=== PATIENT | female | born 1960 | race Caucasian/White ===

== ENCOUNTER → 2016-09-11 | Outpatient (CLI) | payer BC ==
--- NOTE | 2016-09-11 12:56 | XR ---
EXAMINATION TYPE: XR Hip Complete RT DATE OF EXAM: 09/11/2016 12:49 PM COMPARISON: NONE HISTORY: Right hip pain TECHNIQUE: 2 views submitted FINDINGS: There is no evidence of erosive change or acute fracture. Hypertrophic changes noted with mild narrowing of the joint space. Calcific density along the acetabu lum likely related to chronic labral tear. IMPRESSION: 1. No evidence of acute fracture or dislocation. 2. Arthropathy of the right hip.
--- NOTE | 2016-09-11 12:56 | XR ---
EXAMINATION TYPE: XR abdomen 1V DATE OF EXAM: 09/11/2016 12:49 PM COMPARISON: 12/28/2013 HISTORY: Pain TECHNIQUE: One view abdominal series FINDINGS: The osseous structures are intact. The bowel gas pattern is nonspecific. IMPRESSION: 1. Nonspecific abdomen.
--- NOTE | 2016-09-11 12:58 | XR ---
EXAMINATION TYPE: XR knee complete LT DATE OF EXAM: 09/11/2016 12:49 PM COMPARISON: NONE HISTORY: Pain TECHNIQUE: Four views are submitted. FINDINGS: Mild narrowing of the medial compartment of the knee joint. 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 Noted posteriorly on the lateral view. Osseous structures are intact. No acute fracture seen. IMPRESSION: 1. No acute fracture or dislocation.
--- NOTE | 2016-09-11 13:12 | XR ---
EXAMINATION TYPE: XR pelvis AP view DATE OF EXAM: 09/11/2016 12:49 PM COMPARISON: NONE HISTORY: Pain The osseous structures are intact and the joint spaces are preserved. No acute fracture is seen. Vi sualized bowel gas pattern is nonspecific. Calcifications in the pelvis are likely vascular. Arthrop athy of the hips noted. Degenerative change of the lower lumbar spine. IMPRESSION: 1. Arthropathy hip joints bilaterally. 2. Degenerative disc disease lower lumbar spine.
== END | disposition home or self-care (01) ==
LOC: RADXRMAIN 12:16
PROVIDERS: ATTEND Family Medicine
DX: M12.851 Other specific arthropathies, not elsewhere classified, right hip (principal); M25.562 Pain in left knee; R10.2 Pelvic and perineal pain; R10.9 Unspecified abdominal pain
CPT/HCPCS: 72170; 73502; 74000

== ENCOUNTER 2016-10-31 12:36 | Observation (INO) | payer BC ==
[2016-10-31] MEDS ORDERED: ASPIRIN 81 MG CHEW PO STA (13:47)
[2016-10-31 14:13] LABS: Partial Thromboplastin Time 26.5 sec (22.0-30.0); Prothrombin Time 10.1 sec (9.0-12.0)
--- NOTE | 2016-10-31 14:16 | ED ---
General Adult HPI - General Chief complaint: Recheck/Abnormal Lab/Rx Stated complaint: heart concerns/dizziness Time Seen by Provider: 10/31/16 13:01 Source: patient, RN notes reviewed, old records reviewed Mode of arrival: ambulatory Limitations: no limitations - History of Present Illness Initial comments: This is a 56-year-old female to the ER for evaluation. Patient states coming in for concerns of heart rate. Irregular heart rate palpitations not feeling well.Since Friday patient has been weak and dizzy, not feeling well. Mostly in the am patient has been feeling off, today had episode of dizziness and weakness , shortness of breath. States heart isnt acting appropriately, patient has no fever or chest pain, currently with dietary changes and weight loss. - Related Data Home Medications Medication Instructions Recorded Confirmed Atenolol [Tenormin] 50 mg PO HS 12/28/13 10/31/16 Cetirizine HCl [Zyrtec] 10 mg PO HS 12/28/13 10/31/16 Levothyroxine Sodium [Synthroid] 66 mcg PO DAILY 12/28/13 10/31/16 Lisinopril-Hctz 20-12.5 mg 1 tab PO DAILY 12/28/13 10/31/16 [Zestoretic 20-12.5] Carotene 1 tab PO DAILY 10/31/16 10/31/16 Ergocalciferol [Vitamin D2] 50,000 unit PO TU 10/31/16 10/31/16 Ferrous Sulfate [Feosol] 325 mg PO DAILY 10/31/16 10/31/16 Magnesium 200 mg PO DAILY 10/31/16 10/31/16 Naltrexone HCl/Bupropion HCl 1 tab PO DAILY 10/31/16 10/31/16 [Contrave ER 8-90 mg Tablet] Potassium 99 mg PO DAILY 10/31/16 10/31/16 Vitamin C/Biotin [Hair, Skin and 1 tab PO DAILY 10/31/16 10/31/16 Nails] Allergies Allergy/AdvReac Type Severity Reaction Status Date / Time penicillin V Allergy Rash/Hives Verified 10/31/16 13:59 hydromorphone AdvReac Vomiting Verified 10/31/16 13:59 Review of Systems ROS Statement: Those systems with pertinent positive or pertinent negative responses have been documented in the HPI. ROS Other: All systems not noted in ROS Statement are negative. Past Medical History Past Medical History: Hyperlipidemia, Hypertension, Thyroid Disorder History of Any Multi-Drug Resistant Organisms: None Reported Past Surgical History: Section Past Psychological History: No Psychological Hx Reported Smoking Status: Never smoker Past Alcohol Use History: Occasional Past Drug Use History: None Reported General Exam Limitations: no limitations General appearance: alert, in no apparent distress Head exam: Present: atraumatic, normocephalic, normal inspection Eye exam: Present: normal appearance, PERRL, EOMI. Absent: scleral icterus, conjunctival injection, periorbital swelling ENT exam: Present: normal exam, mucous membranes moist Neck exam: Present: normal inspection. Absent: tenderness, meningismus, lymphadenopathy Respiratory exam: Present: normal lung sounds bilaterally. Absent: respiratory distress, wheezes, rales, rhonchi, stridor Cardiovascular Exam: Present: regular rate, normal rhythm, normal heart sounds. Absent: systolic murmur, diastolic murmur, rubs, gallop, clicks GI/Abdominal exam: Present: soft, normal bowel sounds. Absent: distended, tenderness, guarding, rebound, rigid Extremities exam: Present: normal inspection, full ROM, normal capillary refill. Absent: tenderness, pedal edema, joint swelling, calf tenderness Back exam: Present: normal inspection Neurological exam: Present: alert, oriented X3, CN II-XII intact Psychiatric exam: Present: normal affect, normal mood Skin exam: Present: warm, dry, intact, normal color. Absent: rash Course Vital Signs 10/31/16 10/31/16 10/31/16 12:37 13:34 14:40 Temperature 98.1 F Pulse Rate 82 75 Pulse Rate [ 76 Engineer ] Respiratory 20 16 16 Rate Blood Pressure 136/65 115/78 O2 Sat by Pulse 95 96 Oximetry EKG Findings - EKG Comments: EKG Findings:: EKG shows normal sinus rhythm a rate, OR 162, QRS 80, QTC 445 Medical Decision Making - Medical Decision Making 56 female to ed with palpiations, weakness, near syncope and chest pain, patient with history of HTN and high cholesterol, will be admitted for trending of troponin and cardiac evaluation - Lab Data Result diagrams: 10/31/16 13:25 10/31/16 13:25 Lab Results 10/31/16 10/31/16 10/31/16 Range/Units 13:25 13:25 13:25 WBC (3.8-10.6) k/uL RBC (3.80-5.40) m/uL Hgb (11.4-16.0) gm/dL Hct (34.0-46.0) % MCV (80.0-100.0) fL MCH (25.0-35.0) pg MCHC (31.0-37.0) g/dL RDW (11.5-15.5) % Plt Count (150-450) k/uL Neutrophils % % Lymphocytes % % Monocytes % % Eosinophils % % Basophils % % Neutrophils # (1.3-7.7) k/uL Lymphocytes # (1.0-4.8) k/uL Monocytes # (0-1.0) k/uL Eosinophils # (0-0.7) k/uL Basophils # (0-0.2) k/uL PT 10.1 (9.0-12.0) sec INR 1.0 (<1.1) APTT 26.5 (22.0-30.0) sec Sodium 140 (137-145) mmol/L Potassium 3.8 (3.5-5.1) mmol/L Chloride 105 (98-107) mmol/L Carbon Dioxide 24 (22-30) mmol/L Anion Gap 11 mmol/L BUN 15 (7-17) mg/dL Creatinine 0.80 (0.52-1.04) mg/dL Est GFR (MDRD) Af Amer >60 (>60 ml/min/1.73 sqM) Est GFR (MDRD) Non-Af >60 (>60 ml/min/1.73 sqM) Glucose 121 H (74-99) mg/dL Calcium 9.7 (8.4-10.2) mg/dL Total Bilirubin 0.8 (0.2-1.3) mg/dL AST 40 H (14-36) U/L ALT 56 H (9-52) U/L Alkaline Phosphatase 84 (38-126) U/L Total Creatine Kinase 146 H (30-135) U/L CK-MB (CK-2) 1.9 (0.0-2.4) ng/mL CK-MB (CK-2) Rel Index 1.3 Troponin I <0.012 (0.000-0.034) ng/mL Total Protein 7.8 (6.3-8.2) g/dL Albumin 4.4 (3.5-5.0) g/dL 10/31/16 Range/Units 13:25 WBC 6.7 (3.8-10.6) k/uL RBC 4.03 (3.80-5.40) m/uL Hgb 13.7 (11.4-16.0) gm/dL Hct 37.9 (34.0-46.0) % MCV 93.9 (80.0-100.0) fL MCH 33.9 (25.0-35.0) pg MCHC 36.1 (31.0-37.0) g/dL RDW 13.0 (11.5-15.5) % Plt Count 212 (150-450) k/uL Neutrophils % 50 % Lymphocytes % 34 % Monocytes % 9 % Eosinophils % 1 % Basophils % 1 % Neutrophils # 3.4 (1.3-7.7) k/uL Lymphocytes # 2.3 (1.0-4.8) k/uL Monocytes # 0.6 (0-1.0) k/uL Eosinophils # 0.1 (0-0.7) k/uL Basophils # 0.1 (0-0.2) k/uL PT (9.0-12.0) sec INR (<1.1) APTT (22.0-30.0) sec Sodium (137-145) mmol/L Potassium (3.5-5.1) mmol/L Chloride (98-107) mmol/L Carbon Dioxide (22-30) mmol/L Anion Gap mmol/L BUN (7-17) mg/dL Creatinine (0.52-1.04) mg/dL Est GFR (MDRD) Af Amer (>60 ml/min/1.73 sqM) Est GFR (MDRD) Non-Af (>60 ml/min/1.73 sqM) Glucose (74-99) mg/dL Calcium (8.4-10.2) mg/dL Total Bilirubin (0.2-1.3) mg/dL AST (14-36) U/L ALT (9-52) U/L Alkaline Phosphatase (38-126) U/L Total Creatine Kinase (30-135) U/L CK-MB (CK-2) (0.0-2.4) ng/mL CK-MB (CK-2) Rel Index Troponin I (0.000-0.034) ng/mL Total Protein (6.3-8.2) g/dL Albumin (3.5-5.0) g/dL - Radiology Data Radiology results: report reviewed (CXR is negative for acute disease), image reviewed Critical Care Time Critical Care Time: Yes Total Critical Care Time: 31 Disposition Clinical Impression: Chest pain, Palpitations, Dizziness Disposition: ADMITTED IP TO THIS [facility] Condition: Undetermined Referrals: Henry Goode DO [Primary Care Provider] - 1-2 days
[2016-10-31 14:18] LABS: ALT 56 U/L (9-52); AST 40 U/L (14-36); Alkaline Phosphatase 84 U/L (38-126); Anion Gap 11 mmol/L; Blood Urea Nitrogen 15 mg/dL (7-17); Calcium 9.7 mg/dL (8.4-10.2); Carbon Dioxide 24 mmol/L (22-30); Chloride 105 mmol/L (98-107); Glucose 121 mg/dL (74-99); Non-African American GFR(MDRD) >60 (>60 ml/min/1.73 sqM); Potassium 3.8 mmol/L (3.5-5.1); Sodium 140 mmol/L (137-145); Total Bilirubin 0.8 mg/dL (0.2-1.3); Total Protein 7.8 g/dL (6.3-8.2)
[2016-10-31 14:24] LABS: Creatine Kinase 146 U/L (30-135)
[2016-10-31 14:37] LABS: Creatine Kinase MB 1.9 ng/mL (0.0-2.4); Troponin I <0.012 ng/mL (0.000-0.034)
[2016-10-31 15:12] LABS: Basophils # (A) 0.1 k/uL (0-0.2); Basophils % (A) 1 %; CH 33.7; Eosinophils # (A) 0.1 k/uL (0-0.7); Eosinophils % (A) 1 %; HCT 37.9 % (34.0-46.0); HDW 2.79; HGB 13.7 gm/dL (11.4-16.0); Luc # (Auto) 0.26; Luc % (Auto) 4; Lymphocytes # (A) 2.3 k/uL (1.0-4.8); Lymphocytes % (A) 34 %; MCH 33.9 pg (25.0-35.0); MCHC 36.1 g/dL (31.0-37.0); MCV 93.9 fL (80.0-100.0); Monocytes # (A) 0.6 k/uL (0-1.0); Monocytes % (A) 9 %; Neutrophils # (A) 3.4 k/uL (1.3-7.7); Neutrophils % (A) 50 %; RBC 4.03 m/uL (3.80-5.40); WBC 6.7 k/uL (3.8-10.6); WBC (Perox) 6.55
[2016-10-31] MEDS ORDERED: NITROGLYCERIN SL TABS 0.4 MG TAB SUBLINGUAL PRN (15:38)
[2016-10-31] MEDS ORDERED: HEPARIN SODIUM,PORCINE 5,000 UNIT/ML 1 ML VIAL IV ONE (15:38)
[2016-10-31] MEDS ORDERED: HEPARIN SODIUM,PORCINE 5,000 UNIT/ML 1 ML VIAL IV PRN (15:38)
[2016-10-31] MEDS ORDERED: HEPARIN SODIUM,PORCINE/D5W PMX 25,000 UNIT in DEXTROSE/WATER 1 500ML.BAG IV SCH (15:45)
[2016-10-31 15:48] LABS: Magnesium 2.2 mg/dL (1.6-2.3); Phosphorous 3.1 mg/dL (2.5-4.5)
[2016-10-31] MEDS: SODIUM CHLORIDE 0.9% 1,000 ML IV SCH (15:54)
--- NOTE | 2016-10-31 16:19 | XR ---
EXAMINATION TYPE: XR chest 2V DATE OF EXAM: 10/31/2016 4:14 PM COMPARISON: NONE HISTORY: Chest pain. TECHNIQUE: Frontal and lateral views of the chest are obtained. FINDINGS: There is no focal air space opacity, pleural effusion, or pneumothorax seen. The cardiac silhouette size is upper limits of normal. The osseous structures are intact. IMPRESSION: No acute process.
[2016-10-31 20:15] LABS: Creatine Kinase 113 U/L (30-135)
[2016-10-31 20:27] LABS: Creatine Kinase MB 1.3 ng/mL (0.0-2.4); Troponin I <0.012 ng/mL (0.000-0.034)
[2016-10-31] MEDS ORDERED: ATENOLOL 50 MG TAB PO SCH (21:00)
[2016-10-31] MEDS ORDERED: LORATADINE 10 MG TAB PO SCH (21:00)
--- NOTE | 2016-10-31 21:06 | CONS ---
Mckenzie Phillips is a 56-year-old female who presented to the hospital but it is increasing fluttering in her neck. However, she also stated that she had a tightness in the chest that lasted for a few hours and therefore, she is being ruled out for an UT. She is on IV heparin. Her first cardiac enzyme is normal. There are no ST segment abnormalities on her first 12-lead ECG. I do not see any arrhythmias so far. She denies any dizziness, lightheadedness, loss of consciousness. The fluttering that she described seemed like premature beats. She has never experienced any sustained palpitations or loss of consciousness. 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 She is on atenolol and lisinopril/hydrochlorothiazide. She has been hypertensive since the age of 30 years. REVIEW OF SYSTEMS: No fever, chills or rigors. No cough or expectoration. No nausea, vomiting or diarrhea. No hematuria or dysuria. No strokes or seizure. No skin lesions or musculoskeletal complaints. ALLERGIES TO PENICILLIN, HYDROMORPHONE. Medication list includes: 1. Levothyroxine. 2. Atenolol 50 mg daily. 3. Zyrtec. 4. Lisinopril/hydrochlorothiazide 20/12.5 mg daily. 5. Ferrous sulfate. SOCIAL HISTORY: She is a never smoker. She has been on weight loss medications. On examination, her blood pressure is 115/78 mmHg, her heart rate is in the 60s. Head and neck examination is normal. Heart sounds are normal Head and neck are normal. Heart sounds S1, S2 are normal. No murmurs or gallop. ABDOMEN: Soft, nontender. No abdominal bruits audible. EXTREMITIES: Warm. No edema. IMPRESSION: 1. Fluttering in the neck, which is increasing in frequency. 2. Hypertension on atenolol and lisinopril/hydrochlorothiazide. 3. Dyslipidemia intolerant to multiple statins and acute renal failure with TriCor. 4. Intermittently for the last several months has been taking weight loss medications, but her palpitations began way before that. SUGGEST: 1. TSH level, lipid panel. 2. Monitor on telemetry and watch for the arrhythmias. 3. Serial cardiac enzymes to rule out any myocardial injury on account of the chest discomfort that she has experienced and a 2-D echo and Doppler study to assess cardiac structure and function. I would like to see the degree of left ventricular hypertrophy, particularly since she has been hypertensive since the age of 30.
[2016-11-01 03:06] LABS: Creatine Kinase 105 U/L (30-135)
[2016-11-01 03:18] LABS: Creatine Kinase MB 1.4 ng/mL (0.0-2.4); Troponin I <0.012 ng/mL (0.000-0.034)
[2016-11-01] MEDS: SODIUM CHLORIDE 0.9% 1,000 ML IV SCH (06:28)
[2016-11-01] MEDS ORDERED: LEVOTHYROXINE 112 MCG TAB PO SCH (06:30)
[2016-11-01 07:15] LABS: Mean Platelet Volume 7.7
[2016-11-01] MEDS ORDERED: NALTREXONE HCL PO SCH (09:00)
[2016-11-01] MEDS ORDERED: LISINOPRIL-HCTZ 20-12.5 MG 1 EACH TAB PO SCH (09:00)
[2016-11-01] MEDS ORDERED: POTASSIUM CHLORIDE ORAL LIQUID 40 MEQ/30 ML CUP PO SCH (09:00)
[2016-11-01] MEDS ORDERED: ASPIRIN 325 MG TAB PO SCH (09:00)
[2016-11-01] MEDS ORDERED: MAGNESIUM OXIDE 400 MG TAB PO SCH (09:00)
[2016-11-01] MEDS ORDERED: BUPROPION HCL PO SCH (09:00)
[2016-11-01] MEDS ORDERED: [UNRECOGNIZED DRUG - OTHER] PO SCH (09:00)
--- NOTE | 2016-11-01 09:57 | ECHOF ---
Referral Reason:palp/cp MEASUREMENTS -------- HEIGHT: 162.6 cm WEIGHT: 95.3 kg BP: 104/67 RVIDd: 3.2 cm (< 3.3) IVSd: 1.0 cm (0.6 - 1.1) LVIDd: 4.5 cm (3.9 - 5.3) LVPWd: 1.0 cm (0.6 - 1.1) IVSs: 1.4 cm LVIDs: 3.3 cm LVPWs: 1.4 cm LAESV Index (A-L): 10.48 ml/m Ao Diam: 2.6 cm (2.0 - 3.7) AV Cusp: 1.7 cm (1.5 - 2.6) LA Diam: 3.3 cm (2.7 - 3.8) MV EXCURSION: 15.965 mm (> 18.000) MV EF SLOPE: 99 mm/s (70 - 150) EPSS: 0.4 cm MV E Lalo: 0.85 m/s MV DecT: 232 ms MV A Lalo: 0.52 m/s MV E/A Ratio: 1.64 RAP: 5.00 mmHg RVSP: 29.36 mmHg FINDINGS -------- Sinus rhythm. This was a technically adequate study. Left ventricular wall thickness is normal. Overall left ventricular systolic function is normal with, an EF between 55 - 60 %. The right ventricle is normal in size and function. Normal LA size by volume 22+/-6 ml/m2. The right atrium is normal in size. The aortic valve is trileaflet, and appears structurally normal. No aortic stenosis or regurgitation. The mitral valve leaflets are mildly thickened. There is trace to mild mitral regurgitation. Trace tricuspid regurgitation present. There is no evidence of pulmonary hypertension. The right ventricular systolic pressure, as measured by Doppler, is 29.36mmHg. Trace/mild (physiologic) pulmonic regurgitation. The aortic root size is normal. There is no pericardial effusion. CONCLUSIONS -------- 1. Sinus rhythm. 2. The aortic root size is normal. 3. There is no pericardial effusion. 4. Overall left ventricular systolic function is normal with, an EF between 55 - 60 %. 5. Normal LA size by volume 22+/-6 ml/m2. 6. The mitral valve leaflets are mildly thickened. 7. There is trace to mild mitral regurgitation. 8. Trace tricuspid regurgitation present. 9. There is no evidence of pulmonary hypertension. 10. The right ventricular systolic pressure, as measured by Doppler, is 29.36mmHg. 11. Trace/mild (physiologic) pulmonic regurgitation. [employer] PROFESSOR: Renato Alba RDCS
[2016-11-01] MEDS ORDERED: ASCORBIC ACID 500 MG TAB PO SCH (12:00)
[2016-11-01] MEDS ORDERED: FERROUS SULFATE 325 MG TAB PO SCH (12:00)
[2016-11-01 12:37] VITALS: BP 110/69; PULSE 84; RESP 14; TEMP 97.5
--- NOTE | 2016-11-01 13:17 | P.PN ---
Progress Note - Text Patient may go home from a cardiac standpoint. 2-D echo is normal. Triglycerides of 555. No arrhythmias detected, normal TSH Plan Event monitor, 30 days Exercise stress echo to maximal capacity as an outpatient Follow-up with Dr. Lopez thereafter
--- NOTE | 2016-11-01 16:11 | P.HPIM ---
History of Present Illness H&P Date: 11/01/16 Chief Complaint: Heart fluttering, dizziness HISTORY AND PHYSICAL AND DISCHARGE SUMMARY: This is a 56-year-old female patient of Dr. Goode with a past mental history of hyperlipidemia not on medications, hypertension, osteoarthritis generalized, hypothyroidism, low back pain, migraines, kidney stones, and diverticular disease. Patient states that she was feeling fluttering in her chest. She has had episodes of this for many years but on this time she had lightheadedness. On Friday she was having episodes and on Friday it seemed to be worse. By it was even worse. 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 She states she had sweats and dizziness in the heart fluttering and felt faint. She does state that she lost 23 pounds recently on a low-carb diet. Patient is currently not on medication for hyper lipidemia as she had muscle cramps with statins and when she was on TriCor she had acute kidney injury. She has not been tried on Lopid. Patient was started on a heparin drip and placed in the observation unit and cardiology consult was requested. Patient does have history of a stress test done 10 years ago which was within normal limits. Triglycerides 555, cholesterol 228 and HDL 38. TSH is 1.710. Troponins were negative on 3 draws. Echocardiogram reveals EF of 55-60%, mild mitral regurgitation, trace tricuspid regurgitation. We have ordered an event monitor for 30 days. Cardiology has followed the patient and his cleared her for discharge. Plan is for exercise stress echocardiogram as an outpatient. Review of Systems All systems: negative Constitutional: Denies chills, Denies fever Eyes: denies blurred vision, denies pain Ears, nose, mouth and throat: Reports vertigo, Denies headache, Denies sore throat Cardiovascular: Reports lightheadedness, Reports rapid heart beat, Denies chest pain, Denies shortness of breath Respiratory: Denies cough Gastrointestinal: Denies abdominal pain, Denies diarrhea, Denies nausea, Denies vomiting Genitourinary: Denies dysuria, Denies hematuria Musculoskeletal: Denies myalgias Integumentary: Denies pruritus, Denies rash Neurological: Denies numbness, Denies weakness Psychiatric: Denies anxiety, Denies depression Endocrine: Denies fatigue, Denies weight change Past Medical History Past Medical History: Hyperlipidemia, Hypertension, Osteoarthritis (OA), Thyroid Disorder Additional Past Medical History / Comment(s): MIGRAINES, KIDNEY STONES, DIVERTULAR DISEASE,COLON POLYPS-BENIGN History of Any Multi-Drug Resistant Organisms: None Reported Past Surgical History: Section Additional Past Surgical History / Comment(s): LYPOMA REMOVED, RT WRIST CYSTS REMOVED, COLONOSCOPY/POLYPS Past Anesthesia/Blood Transfusion Reactions: Motion Sickness Past Psychological History: No Psychological Hx Reported Additional Psychological History / Comment(s): PT LIVES IN A SINGLE LEVEL HOME THAT HAS 4 STEPS IN WHICH TO ENTER AND 13 BASEMENT STEPS. PT IS INDEPENDANT, NO OUTSIDE SERVICES, NO M EDICAL EQUIPMENT. PT LIVES WITH SPOUSE AND 1 SON, 1 PET DOG. Smoking Status: Former smoker Past Alcohol Use History: Occasional Additional Past Alcohol Use History / Comment(s): STARTED SMOKING AT AGE 16, QUIT AT AGE 32, SMOKED 1/2 PPD. She denies any medical marijuana, marijuana or street drug use. She drinks alcohol socially. Past Drug Use History: None Reported - Past Family History Mother Family Medical History: Cancer, Diabetes Mellitus Additional Family Medical History / Comment(s): Mother at age 76 from BLADDER CANCER. She also had diabetes. Father Family Medical History: Cancer, Congestive Heart Failure (CHF) Additional Family Medical History / Comment(s): Father at age 79 with history of congestive heart failure, coronary artery disease, pacemaker placement and LUNG CANCER Brother(s) Additional Family Medical History / Comment(s): Patient has 4 brothers and one from bacterial meningitis. Sister(s) Additional Family Medical History / Comment(s): Patient has 7 sisters and one from a ruptured aorta at 17 years of age. Medications and Allergies Home Medications Medication Instructions Recorded Confirmed Type Atenolol [Tenormin] 50 mg PO HS 12/28/13 10/31/16 History Cetirizine HCl [Zyrtec] 10 mg PO HS 12/28/13 10/31/16 History Levothyroxine Sodium [Synthroid] 66 mcg PO DAILY 12/28/13 10/31/16 History Lisinopril-Hctz 20-12.5 mg 1 tab PO DAILY 07/15/14 05/18/17 History [Zestoretic 20-12.5] Carotene 1 tab PO DAILY 10/31/16 10/31/16 History Ergocalciferol [Vitamin D2 50,000 unit PO TU 10/31/16 10/31/16 History (DRISDOL)] Ferrous Sulfate [Iron (65 MG 325 mg PO DAILY 10/31/16 10/31/16 History Elemental)] Magnesium 200 mg PO DAILY 10/31/16 10/31/16 History Naltrexone HCl/Bupropion HCl 1 tab PO DAILY 10/31/16 10/31/16 History [Contrave ER 8-90 mg Tablet] Potassium 99 mg PO DAILY 10/31/16 10/31/16 History Vitamin C/Biotin [Hair, Skin and 1 tab PO DAILY 10/31/16 10/31/16 History Nails] Allergies Allergy/AdvReac Type Severity Reaction Status Date / Time penicillin V Allergy Rash/Hives Verified 10/31/16 13:59 hydromorphone AdvReac Vomiting Verified 10/31/16 13:59 Physical Exam Vitals: Vital Signs Temp Pulse Pulse Pulse Pulse Resp BP 11/01/16 08:00 97.7 F 56 L 16 11/01/16 04:00 97.8 F 58 L 16 10/31/16 23:44 16 10/31/16 23:42 98.1 F 64 16 10/31/16 20:00 16 10/31/16 19:44 98.0 F 60 16 10/31/16 17:42 97.9 F 56 L 16 10/31/16 17:06 97.8 F 61 16 118/69 10/31/16 14:40 75 16 115/78 10/31/16 13:34 76 16 10/31/16 12:37 98.1 F 82 20 136/65 BP Pulse Ox 11/01/16 08:00 110/68 97 11/01/16 04:00 104/67 95 10/31/16 23:44 10/31/16 23:42 104/61 97 10/31/16 20:00 10/31/16 19:44 104/69 95 10/31/16 17:42 107/61 96 10/31/16 17:06 99 10/31/16 14:40 96 10/31/16 13:34 10/31/16 12:37 95 Intake and Output 10/31/16 11/01/16 11/01/16 22:59 06:59 14:59 Intake Total 139.333 198.396 Balance 139.333 198.396 Intake: Intake, IV Titration 139.333 198.396 Amount Heparin Sodium,Porcine/ 139.333 198.396 D5w Pmx 25,000 unit In Dextrose/Water 1 500ml. bag @ 10.5 UNITS/KG/HR 20 mls/hr IV .Q24H ADRIÁN Rx#: [id number] Other: # Voids 2 Gen: This is a 56-year-old female. She is sitting up in bed and appears to be in no acute distress. HEENT: Head is atraumatic, normocephalic. Pupils equal, round. Sclerae is anicteric. NECK: Supple. No JVD. No lymphadenopathy. No thyromegaly. No carotid bruit. LUNGS: Clear to auscultation. No wheezes or rhonchi. No intercostal retractions. HEART: Regular rate and rhythm. No murmur. ABDOMEN: Soft. Bowel sounds are present. No masses. No tenderness. EXTREMITIES: No pedal edema. No calf tenderness. Dorsalis pedis +2 bilaterally. NEUROLOGICAL: Patient is awake, alert and oriented x3. Cranial nerves 2 through 12 are grossly intact. Results CBC & Chem 7: 11/01/16 05:28 10/31/16 13:25 Labs: Abnormal Lab Results - Last 24 Hours (Table) 10/31/16 10/31/16 10/31/16 Range/Units 13:25 13:25 21:53 APTT 35.9 H (22.0-30.0) sec Glucose 121 H (74-99) mg/dL AST 40 H (14-36) U/L ALT 56 H (9-52) U/L Total Creatine Kinase 146 H (30-135) U/L Triglycerides (<150) mg/dL Cholesterol (<200) mg/dL HDL Cholesterol (40-60) mg/dL 11/01/16 11/01/16 Range/Units 05:28 05:28 APTT 44.3 H (22.0-30.0) sec Glucose (74-99) mg/dL AST (14-36) U/L ALT (9-52) U/L Total Creatine Kinase (30-135) U/L Triglycerides 555 H (<150) mg/dL Cholesterol 228 H (<200) mg/dL HDL Cholesterol 38 L (40-60) mg/dL Thrombosis Risk Factor Assmnt - DVT/VTE Prophylaxis DVT/VTE Prophylaxis: Pharmacologic Prophylaxis ordered - Choose All That Apply Any of the Below Risk Factors Present?: Yes Each Factor Represents 1 point: Age 41-60 years, Obesity (BMI >25) Other Risk Factors: No Other congenital or acquired thrombophilia - If yes, enter type in comment: No Thrombosis Risk Factor Assessment Total Risk Factor Score: 2 Thrombosis Risk Factor Assessment Level: Low Risk Assessment and Plan Plan: 1. Palpitations and fluttering with dizziness and sweats rule out arrhythmia. Patient will have 30 day event monitor. 2. Hyperlipidemia. Patient started on Lopid. 3. Hypertension. Continue Zestoretic and atenolol. 4. Hypothyroidism. Continue levothyroxine. 5. Seasonal ALLERGIES. Continue Zyrtec. Patient placed on the observation unit. Discharge plan: Home Impression and plan of care have been directed as dictated by the signing physician. Melissa Jonas nurse practitioner acting as scribe for signing physician. Cc: Dr. Henry Goode
[2016-11-01] MEDS ORDERED: GEMFIBROZIL 600 MG TAB PO SCH (17:30)
[2016-11-05] MEDS ORDERED: ERGOCALCIFEROL 50,000 UNIT CAP PO SCH (12:00)
== END 2016-11-01 13:45 | disposition home or self-care (01) ==
LOC: EC 12:36 → 3OBS 15:38
PROVIDERS: ADMIT Internal Medicine; ATTEND Internal Medicine
DX: R00.2 Palpitations (principal); I49.8 Other specified cardiac arrhythmias; R42 Dizziness and giddiness; R53.1 Weakness; R55 Syncope and collapse; R61 Generalized hyperhidrosis; R07.9 Chest pain, unspecified; E78.5 Hyperlipidemia, unspecified; I10 Essential (primary) hypertension; E03.9 Hypothyroidism, unspecified; J30.2 Other seasonal allergic rhinitis; M19.90 Unspecified osteoarthritis, unspecified site; E78.00 Pure hypercholesterolemia, unspecified; M54.5 Low back pain; G43.909 Migraine, unspecified, not intractable, without status migrainosus; Z79.899 Other long term (current) drug therapy; Z88.5 Allergy status to narcotic agent; Z88.0 Allergy status to penicillin; Z87.891 Personal history of nicotine dependence; Z83.3 Family history of diabetes mellitus; Z82.49 Family history of ischemic heart disease and other diseases of the circulatory system; Z80.1 Family history of malignant neoplasm of trachea, bronchus and lung
CPT/HCPCS: 96366 ×2; 96376; 96365; 99291; 36415; 93005; 93306; 80061; 80053; 84443; 82550 ×2; 82553 ×2; 83735; 84100; 84484 ×2; 85025; 85049; 85610; 85730 ×2; 71020; G0378 ×2; J1644 ×2

== ENCOUNTER → 2017-01-21 | Outpatient (CLI) | payer BC ==
--- NOTE | 2017-01-21 15:51 | XR ---
EXAMINATION TYPE: XR knee complete RT DATE OF EXAM: 01/21/2017 CLINICAL HISTORY: Intermittent pain and swelling with heaviness worse since yesterday. TECHNIQUE: Three views of the right knee are obtained. COMPARISON: Right leg x-ray February 17, 2011. FINDINGS: There is no acute fracture/dislocation evident in right knee. There is mild to moderate tr icompartment joint space loss with mild spurring most prominent medial tibiofemoral and patellofemora l compartments redemonstrated. There is some new tibial condylar spurring involving lateral tibial co ndyle. Overlying soft tissue is unremarkable. IMPRESSION: There are mild to moderate osteoarthritic changes in the right knee as detailed above.
== END | disposition home or self-care (01) ==
LOC: RADXRMAIN 15:24
PROVIDERS: ATTEND Family Medicine
DX: M17.11 Unilateral primary osteoarthritis, right knee (principal)

== ENCOUNTER → 2017-05-06 | Outpatient (CLI) | payer BC ==
--- NOTE | 2017-05-06 14:44 | XR ---
Cervical spine HISTORY: Posterior neck pain 5 views of the cervical spine There are vascular calcifications within the distribution of the carotid arteries. No significant for aminal encroachment on oblique views on the right, question some foraminal encroachment at C6-7 on th e left.. There is multilevel spondylosis. Minimal anterolisthesis grade 1 C2-3. Cervical vertebral warner dies show preserved height. Bone mineralization is reduced. Loss of disc height at C5-6 and C6-7. C7- T1 not included on the exam. IMPRESSION: Degenerative disc disease. Osteopenia.
--- NOTE | 2017-05-06 15:04 | XR ---
Thoracic spine HISTORY: Pain 3 views of the thoracic spine correlated the cervical spine same date Thoracic vertebral bodies show preserved height and alignment. There is multilevel spondylosis. Loss of disc height present T11-12. Bone mineralization is reduced. IMPRESSION: Degenerative disc disease.
== END | disposition home or self-care (01) ==
LOC: RADCTMAIN 09:44
PROVIDERS: ATTEND Family Medicine
DX: M50.30 Other cervical disc degeneration, unspecified cervical region (principal); M85.80 Other specified disorders of bone density and structure, unspecified site; M51.34 Other intervertebral disc degeneration, thoracic region
CPT/HCPCS: 72050; 72072

== ENCOUNTER → 2017-05-14 | Outpatient (CLI) | payer BC ==
--- NOTE | 2017-05-15 08:48 | BD ---
EXAMINATION TYPE: MG DEXA axial skeleton. DATE OF EXAM: 05/14/2017 COMPARISON: DEXA bone scan May 25, 2013 CLINICAL HISTORY: Osteopenia per order. Postmenopausal female Height: 5 FT 4 IN Weight: 225 FRAX RISK QUESTIONS: Alcohol (3 or more units per day): NO Family History (Parent hip fracture): NO Glucocorticoids (More than 3mos): NO (Ex: prednisone, prednisolone, methylprednisolone, dexamethasone, and hydrocortisone). History of Fracture in Adulthood: YES Secondary Osteoporosis: 1. Type 1 Diabetes: NO 2. Hyperthyroidism: NO 3. Menopause before 45: NO 4. Malnutrition: NO 5. Chronic liver disease: NO Rheumatoid Arthritis: NO Current Tobacco Use: NO RISK FACTORS HISTORY OF: Surgery to Spine/Hip(right/left)/Wrist (right/left): RT WRIST When: 1985 Active: YES Postmenopausal woman: AGE 55 MEDICATIONS: Thyroid Medications: YES Which medication: SYNTHROID How Lon YEARS Additional Medications: LISINOPRIL, SYNTHROID ,ZYRTEC, VICODIN NEEDED,CONTRAVE Additional History: EXAM MEASUREMENTS: Bone mineral densitometry was performed using the [email or web address] System. Bone mineral density as measured about the Lumbar spine is: ----- L1-L4(G/cm2): 1.255 T Score Values are as follows: ----- L2: -0.2 ----- L3: 0.9 ----- L4: 1.5 ----- L1-L4: 0.6 Bone mineral density has: INCREASED 0.9 % since study of: 2012 Bone mineral density about the R hip (g/cm2): 1.002 Bone mineral density about the L hip (g/cm2): 1.029 T Score values are as follows: -----R Neck: -0.3 -----L Neck: -0.1 -----R Total: 1.6 -----L Total: 2.0 Bone mineral density has: 0 CHANGE % since study of: 2012 IMPRESSION: Normal (Values between +1 and -1 indicate normal bone mass). Bone density remains normal range not si gnificantly changed from prior. Consider repeating this study in 5 years or sooner if there is some n ew clinical indication. NOTE: T-SCORE=SD OF THE YOUNG ADULT MEAN.
== END | disposition home or self-care (01) ==
LOC: RADBDWWP 14:11
PROVIDERS: ATTEND Family Medicine
DX: M85.80 Other specified disorders of bone density and structure, unspecified site (principal)
CPT/HCPCS: 77080

== ENCOUNTER → 2017-10-16 | Outpatient (CLI) | payer BC ==
--- NOTE | 2017-10-17 09:19 | MM ---
Reason for exam: screening (asymptomatic). Last mammogram was performed 2 years and 1 month ago. History: Family history of breast cancer in grandmother. Physical Findings: A clinical breast exam by your physician is recommended on an annual basis and results should be correlated with mammographic findings. MG 3D Screening Mammo W/Cad Bilateral CC and MLO view(s) were taken. Prior study comparison: September 29, 2015, bilateral MG 3d screening mammo w/cad. August 24, 2014, mammogram, performed at [facility]. There are scattered fibroglandular densities. There is no discrete abnormality. No significant changes when compared with prior studies. ASSESSMENT: Negative, BI-RAD 1 RECOMMENDATION: Routine screening mammogram of both breasts in 1 year.
== END | disposition home or self-care (01) ==
LOC: RADMAMWWP 08:04
PROVIDERS: ATTEND Family Medicine
DX: Z12.31 Encounter for screening mammogram for malignant neoplasm of breast (principal)
CPT/HCPCS: 77063; 77067

== ENCOUNTER → 2018-10-02 | Outpatient (CLI) | payer BC, OTHER ==
--- NOTE | 2018-10-02 09:06 | MM ---
Reason for exam: additional evaluation requested from prior study. Last mammogram was performed 1 year ago. History: Patient is postmenopausal. Family history of breast cancer in maternal grandmother at age 55. Physical Findings: Nurse Summary: 1cm nodule in the right breast at 3 o'clock (nurse kp). MG 3D Diag Mammo W/Cad FELY Bilateral CC and MLO view(s) were taken. Prior study comparison: October 16, 2017, bilateral MG 3d screening mammo w/cad. September 29, 2015, bilateral MG 3d screening mammo w/cad. There are scattered fibroglandular densities. No suspicious abnormality. No significant new findings when compared with previous films. These results were verbally communicated with the patient and result sheet given to the patient on 10/02/18. ASSESSMENT: Negative, BI-RAD 1 RECOMMENDATION: Routine screening mammogram of both breasts in 1 year.
--- NOTE | 2018-10-02 09:08 | USB ---
Reason for exam: additional evaluation requested from prior study. History: Patient is postmenopausal. Family history of breast cancer in maternal grandmother at age 55. US Breast Limited RT Right limited breast ultrasound including focal area of concern, retroareolar and axilla demonstrates a 5 x 3 x 5mm oval, cystic, benign lesion at 12 o'clock and a 9 x 3 x 6mm benign cystic cluster at 1 o'clock. These results were verbally communicated with the patient and result sheet given to the patient on 10/02/18. ASSESSMENT: Benign, BI-RAD 2 RECOMMENDATION: Routine screening mammogram of both breasts in 1 year.
== END | disposition home or self-care (01) ==
LOC: RADMAMWWP 07:02
PROVIDERS: ATTEND Family Medicine
DX: N63.10 Unspecified lump in the right breast, unspecified quadrant (principal)
CPT/HCPCS: 77062; 77066

== ENCOUNTER 2022-11-19 07:32 | Day surgery (SDC) | payer BC ==
[2022-11-15 10:59] VITALS: BMI 36.0
[~2022-11-19 07:32] MED LIST: LACTATED RINGERS 1,000 ML IV SCH
[2022-11-19 07:55] VITALS: RESP 16; TEMP 97.6
[2022-11-19] MEDS ORDERED: LIDOCAINE 1% (10MG/ML) FOR IV START INTRADERMA ONE (08:02)
[2022-11-19] MEDS ORDERED: PROPOFOL 10 MG/ML 20 ML VIAL IV ONE (08:03)
--- NOTE | 2022-11-19 08:27 | P.GSHP ---
History of Present Illness H&P Date: 11/19/22 Chief Complaint: Screening with history of polyps 62-year-old female here for colonoscopy. Last colonoscopy 10 years ago. Patient says she had polyps she believes. No bowel complaints. No family history of colon cancer. Past Medical History Past Medical History: Chest Pain / Angina, Diabetes Mellitus, Hyperlipidemia, Hypertension, Osteoarthritis (OA), Thyroid Disorder Additional Past Medical History / Comment(s): Pre-Diabetic. Recent chest pain, saw [employer] Operations Engineer, scheduled for stress test December 2022. MIGRAINES, HX KIDNEY STONES, DIVERTULAR DISEASE, COLON POLYPS-BENIGN, varicose veins. History of Any Multi-Drug Resistant Organisms: None Reported Past Surgical History: Section Additional Past Surgical History / Comment(s): LYPOMA REMOVED, RIGHT WRIST CYSTS REMOVED, COLONOSCOPY/POLYPECTOMY. Past Anesthesia/Blood Transfusion Reactions: No Reported Reaction Additional Past Anesthesia/Blood Transfusion Reaction / Comment(s): Vertigo. Past Psychological History: No Psychological Hx Reported Smoking Status: Former smoker Past Alcohol Use History: Occasional Additional Past Alcohol Use History / Comment(s): STARTED SMOKING AT AGE 16, QUIT AT AGE 32, SMOKED 1/2 PPD. Past Drug Use History: None Reported - Past Family History Mother Family Medical History: Cancer, Diabetes Mellitus Additional Family Medical History / Comment(s): Mother at age 76 from BLADDER CANCER. Father Family Medical History: Cancer, Congestive Heart Failure (CHF) Additional Family Medical History / Comment(s): Father at age 79. Had pacemaker and LUNG CANCER. Brother(s) Additional Family Medical History / Comment(s): Patient has 4 brothers and one from bacterial meningitis. Sister(s) Additional Family Medical History / Comment(s): Patient has 7 sisters and one from a ruptured aorta at 17 years of age. Medications and Allergies Home Medications Medication Instructions Recorded Confirmed Type Cetirizine HCl [Zyrtec] 10 mg PO HS 12/28/13 11/15/22 History Levothyroxine Sodium [Synthroid] 66 mcg PO QAM 12/28/13 11/15/22 History Lisinopril-Hctz 20-12.5 mg 1 tab PO DAILY 12/28/13 11/15/22 History [Zestoretic 20-12.5] Ergocalciferol [Vitamin D2 50,000 unit PO TU 10/31/16 11/15/22 History (DRISDOL)] Semaglutide [Rybelsus] 7 mg PO DAILY 11/15/22 11/15/22 History Allergies Allergy/AdvReac Type Severity Reaction Status Date / Time penicillin V Allergy Rash/Hives Verified 11/19/22 07:48 hydromorphone AdvReac Vomiting Verified 11/19/22 07:48 Surgical - Exam Vital Signs Temp Pulse Resp BP Pulse Ox 97.6 F 72 16 134/80 96 11/19/22 07:54 11/19/22 07:54 11/19/22 07:54 11/19/22 07:54 11/19/22 07:54 Physical exam: General: Well-developed, well-nourished HEENT: Normocephalic, sclerae nonicteric Abdomen: Nontender, nondistended Extremities: No edema Neuro: Alert and oriented Assessment and Plan (1) Colon cancer screening Narrative/Plan: Will proceed with colonoscopy at this time. Current Visit: Yes Status: Acute Code(s): Z12.11 - ENCOUNTER FOR SCREENING FOR MALIGNANT NEOPLASM OF COLON SNOMED Code(s): 600690419
--- NOTE | 2022-11-19 08:28 | P.PCN ---
Date of Procedure: 11/19/22 Procedure(s) Performed: PREOPERATIVE DIAGNOSIS: Colon cancer screening POSTOPERATIVE DIAGNOSIS: Diverticulosis PROCEDURE: Colonoscopy ANESTHESIA: MAC SURGEON: Geoff Marshall M.D. SPECIMENS: None ENDOSCOPIC PROCEDURE: The patient was placed on the endoscopy table in the left decubitus position. The Olympus colonoscope was inserted into the anus and passed under direct visualization to the base of the cecum. The appendiceal orifice was visualized. From that point the scope was slowly withdrawn inspe cting all surfaces carefully. There were no neoplastic inflammatory or polypoid lesions throughout the cecum, ascending, transverse, descending, sigmoid and rectum. There was mild left-sided diverticulosis noted. Digital rectal examination was normal. The patient was taken to the recovery room in stable condition per anesthesia guidelines. RECOMMENDATIONS: Resume diet. Repeat colonoscopy in 7-10 years.
[2022-11-19 08:47] VITALS: BP 116/76; PULSE 83
== END 2022-11-19 09:05 | disposition home or self-care (01) ==
LOC: ORWHC2ENDO 07:32
PROVIDERS: ATTEND Surgery
DX: Z12.11 Encounter for screening for malignant neoplasm of colon (principal); K57.30 Diverticulosis of large intestine without perforation or abscess without bleeding; E11.9 Type 2 diabetes mellitus without complications; E78.5 Hyperlipidemia, unspecified; I10 Essential (primary) hypertension; M19.90 Unspecified osteoarthritis, unspecified site; Z87.442 Personal history of urinary calculi; Z98.890 Other specified postprocedural states; Z87.891 Personal history of nicotine dependence; Z86.59 Personal history of other mental and behavioral disorders; Z83.3 Family history of diabetes mellitus; Z82.49 Family history of ischemic heart disease and other diseases of the circulatory system; Z80.1 Family history of malignant neoplasm of trachea, bronchus and lung; Z79.899 Other long term (current) drug therapy; Z88.0 Allergy status to penicillin; Z86.010 Personal history of colon polyps; Z88.5 Allergy status to narcotic agent
CPT/HCPCS: 45378; J2704

== ENCOUNTER → 2022-11-21 | Outpatient (CLI) | payer BC ==
--- NOTE | 2022-11-22 07:32 | MM ---
Reason for Exam: Screening (asymptomatic). Last mammogram was performed 4 year(s) and 2 month(s) ago. Patient History: Menarche at age 18. First Full-Term at age 24. Postmenopausal. Maternal grandmother had breast cancer, age 55. Risk Values: Sapna 5 year model risk: 1.2%. NCI Lifetime model risk: 6.0%. Prior Study Comparison: 09/29/2015 Bilateral Screening Mammogram, [facility]. 10/16/2017 Bilateral Screening Mammogram, [facility]. 10/02/2018 Bilateral Diagnostic Mammogram, [facility]. Tissue Density: The breast tissue is almost entirely fat. Findings: Analyzed By CAD. There is no suspicious group of microcalcifications or new suspicious mass in either breast. Overall Assessment: Negative, BI-RAD 1 Management: Screening Mammogram of both breasts in [address] [facility] will attempt to contact patient to return for supplemental views and ultrasound if indicated. Patient should continue monthly self-breast exams. A clinical breast exam by your physician is recommended on an annual basis. This exam should not preclude additional follow-up of suspicious palpable abnormalities. Note on Sapna scores and lifetime risk: 1. A Sapna score greater than 3% is considered moderate risk. If this is the case, consider specialist referral to assess eligibility for a risk reducing agent. 2. If overall lifetime risk for the development of breast cancer is 20% or higher, the patient may qualify for future screening with alternating mammogram and breast MRI. Electronically signed and approved by: Nicolás Pradhan DO
== END | disposition home or self-care (01) ==
LOC: RADMAMWWP 16:45
PROVIDERS: ATTEND Family Medicine
DX: Z12.31 Encounter for screening mammogram for malignant neoplasm of breast (principal); Z78.0 Asymptomatic menopausal state; Z80.3 Family history of malignant neoplasm of breast
CPT/HCPCS: 77063; 77067

== ENCOUNTER → 2024-05-21 | Outpatient (CLI) | payer BC ==
--- NOTE | 2024-05-21 15:55 | BD ---
EXAMINATION TYPE: Axial Bone Density DATE OF EXAM: 05/21/2024 CLINICAL HISTORY: 64 years old Female. ICD-10 CODE: Z78.0 POST MENOPAUSAL WITHOUT HRT , Additional H istory: Height: 63.25 Weight: 197.4 FRAX RISK QUESTIONS: Alcohol (3 or more units per day): no Family History (Parent hip fracture): no Glucocorticoids (More than 3mos): no (Ex: prednisone, prednisolone, methylprednisolone, dexamethasone, and hydrocortisone). History of Fracture in Adulthood: no Secondary Osteoporosis: 1. Type 1 Diabetes: no 2. Hyperthyroidism: no 3. Menopause before 45: no 4. Malnutrition: no 5. Chronic liver disease: no Rheumatoid Arthritis: no Current Tobacco Use: no RISK FACTORS HISTORY OF: Hip Fracture (Right/Left): no Spine Fracture: no History of Wrist Fracture: RT Wrist age 12 Surgery to Spine/Hip(right/left)/Wrist (right/left): no When: MEDICATIONS: Thyroid Medications: Levothyroxine How Long: Past 34 years Osteoporosis Medications: no EXAM MEASUREMENTS: Bone mineral densitometry was performed using the [employer] System. Bone mineral density as measured about the Lumbar spine is: ----- L1-L4(G/cm2): 1.469 T Score Values are as follows: ----- L1: 1.6 ----- L2: 2.2 ----- L3: 2.3 ----- L4: 3.2 ----- L1-L4: 2.4 Z Score Values are as follows: ----- L1: 2.1 ----- L2: 2.8 ----- L3: 2.9 ----- L4: 3.7 ----- L1-L4: 2.9 Bone mineral density has: increased 17.1 % since study of: 05/14/2017 Bone mineral density about the R hip (g/cm2): 1.173 Bone mineral density about the L hip (g/cm2): 1.169 T Score values are as follows: -----R Neck: -0.5 -----L Neck: -0.6 -----R Total: 1.3 -----L Total: 1.3 Z Score values are as follows: -----R Neck: 0.3 -----L Neck: 0.2 -----R Total: 1.8 -----L Total: 1.7 Bone mineral density has: decreased -5.0% since study of: 05/14/2017 FRAX%s: The graph provided illustrates a 6.6% chance for a major osteoporotic fx and a 0.3% chance fo r the hips probability for fx in 10 years time. IMPRESSION: Normal (Values between +1 and -1 indicate normal bone mass). Consider repeating this study in 5 year s or sooner if there is some new clinical indication. NOTE: T-SCORE=SD OF THE YOUNG ADULT MEAN. [facility], , 05/21/2024 3:52 PM
--- NOTE | 2024-05-24 11:31 | MM ---
Reason for Exam: Screening (asymptomatic). Last mammogram was performed 1 year(s) and 6 month(s) ago. Patient History: Menarche at age 18. First Full-Term at age 24. Postmenopausal. Maternal grandmother had breast cancer, age 55. Risk Values: Sapna 5 year model risk: 1.2%. NCI Lifetime model risk: 5.7%. Prior Study Comparison: 10/16/2017 Bilateral Screening Mammogram, [facility]. 10/02/2018 Bilateral Diagnostic Mammogram, [facility]. 11/21/2022 Bilateral MG 3D screening mammo w/cad, [facility]. Tissue Density: There are scattered areas of fibroglandular density. Findings: Analyzed By CAD. Right breast: There is no suspicious group of microcalcifications or new suspicious mass. Left breast: There is no suspicious group of microcalcifications or new suspicious mass. Overall Assessment: Negative, BI-RAD 1 Management: Screening Mammogram of both breasts in [address] [facility] will attempt to contact patient to return for supplemental views and ultrasound if indicated. Patient should continue monthly self-breast exams. A clinical breast exam by your physician is recommended on an annual basis. This exam should not preclude additional follow-up of suspicious palpable abnormalities. Note on Sapna scores and lifetime risk: 1. A Sapna score greater than 3% is considered moderate risk. If this is the case, consider specialist referral to assess eligibility for a risk reducing agent. 2. If overall lifetime risk for the development of breast cancer is 20% or higher, the patient may qualify for future screening with alternating mammogram and breast MRI. [facility], , 05/24/2024 11:28 AM. Electronically signed and approved by: Nicolás Pradhan DO
== END | disposition home or self-care (01) ==
LOC: RADMAMWWP 09:08
PROVIDERS: ATTEND Family Medicine
DX: Z12.31 Encounter for screening mammogram for malignant neoplasm of breast (principal); Z78.0 Asymptomatic menopausal state; Z80.3 Family history of malignant neoplasm of breast; R92.323 Mammographic fibroglandular density, bilateral breasts
CPT/HCPCS: 77063; 77067; 77080